=== PATIENT | male | born 1940 | race Caucasian/White ===

== ENCOUNTER → 2021-09-14 | Outpatient (CLI) | payer MEDICARE, BC ==
[2021-09-14 14:26] LABS: CREATININE, SERUM 1.07 mg/dL (0.72-1.25)
== END ==
LOC: CT 13:26
PROVIDERS: ATTEND Internal Medicine
DX: J44.1 Chronic obstructive pulmonary disease with (acute) exacerbation (principal); F17.210 Nicotine dependence, cigarettes, uncomplicated
CPT/HCPCS: 36415; 70491; 71250; 82565; 84520

== ENCOUNTER → 2021-09-19 | Outpatient (CLI) | payer MEDICARE, BC | LOC: US 12:35 | PROVIDERS: ATTEND Internal Medicine | DX: E04.1 Nontoxic single thyroid nodule (principal) | CPT/HCPCS: 76536 ==

== ENCOUNTER 2024-11-06 13:33 | Inpatient (IN) | payer MEDICARE, BC ==
[~2024-11-06] VITALS: Ht 177.8 cm; Wt 104.3 kg
[2024-11-06 13:35] VITALS: TEMP 98.4
[2024-11-06 14:23] LABS: BASOPHILS # (AUTO) 0.1 (0.0-0.1); EOSINOPHILS # (AUTO) 0.3 (0.0-0.4); EOSINOPHILS % 3.1 % (0.0-6.0); HEMATOCRIT 42.8 % (38.2-49.6); HEMOGLOBIN 14.1 g/dL (14.0-18.0); LYMPHOCYTES # (AUTO) 1.7 (1.0-3.2); LYMPHOCYTES % 16.4 % (18.0-39.1); MEAN CORPUSCULAR HEMOGLOBIN 30.2 pg (28-32); MEAN CORPUSCULAR HGB CONC 32.9 g/dL (31-35); MEAN CORPUSCULAR VOLUME 91.6 fL (81-99); MONOCYTES # (AUTO) 0.8 (0.2-0.8); MONOCYTES % 7.7 % (4.4-11.3); NEUTROPHILS # (AUTO) 7.3 (2.1-6.9); NEUTROPHILS % 71.5 % (38.7-80.0); PLATELET COUNT 198 x10e3/uL (140-360); RED BLOOD COUNT 4.67 x10e6/uL (4.3-5.7); RED CELL DISTRIBUTION WIDTH 14.6 % (11.7-14.4); WHITE BLOOD COUNT 10.17 x10e3/uL (4.8-10.8)
[2024-11-06 14:50] LABS: MAGNESIUM 1.7 MG/DL (1.3-2.1)
[2024-11-06 14:54] LABS: TROPONIN I 0.002 ng/mL (0-0.300)
[2024-11-06 14:57] LABS: ALBUMIN 3.8 g/dL (3.5-5.0); ALBUMIN/GLOBULIN RATIO 1.5 (0.8-2.0); ANION GAP 15.6 mmol/L (8-16); BILIRUBIN,TOTAL 0.9 mg/dL (0.2-1.2); CALCIUM 9.2 mg/dL (8.4-10.2); CREATININE, SERUM 1.45 mg/dL (0.72-1.25); POTASSIUM 4.6 mmol/L (3.5-5.1); TOTAL PROTEIN 6.4 g/dL (6.5-8.1)
[2024-11-06] MEDS: SODIUM CHLORIDE 0.9% 500ML 500 ML IV ONE ×2 (15:55→18:39)
[2024-11-06 17:41] LABS: CLARITY,URINE CLEAR (CLEAR); COLOR,URINE YELLOW (YELLOW); LEUKOCYTE ESTERASE ,URINE NEGATIVE (NEGATIVE); PH,URINE 5.5 (5 - 7)
[2024-11-06 17:42] LABS: BILIRUBIN,URINE NEGATIVE (NEGATIVE); GLUCOSE, URINE NEGATIVE (NEGATIVE); KETONES,URINE NEGATIVE (NEGATIVE); NITRITE,URINE NEGATIVE (NEGATIVE); PROTEIN,URINE DIPSTICK TRACE (NEGATIVE); URINE UROBILINOGEN 0.2 mg/dL (0.2 - 1)
[2024-11-06 17:59] LABS: BACTERIA,URINE RARE /HPF; RBC,URINE 0-5 /HPF (0-5); WBC,URINE (MAN) 0-5 /HPF (0-5)
[2024-11-06 18:00] LABS: MUCUS,URINE MODERATE
[2024-11-06] MEDS ORDERED: ONDANSETRON HCL INJ 2MG/ML 2ML 2 MG/ML VIAL IV PRN (18:45)
[2024-11-06 18:58] VITALS: PULSE 73; RESP 18
[2024-11-06 22:30] VITALS: BP 142/88; PULSE 71; RESP 18; TEMP 97.6; O2SAT 100
[2024-11-06] MEDS ORDERED: CETIRIZINE HCL10 M1 PO (23:58)
[2024-11-06] MEDS ORDERED: ASPIRIN81 MG PO (23:59)
[2024-11-07] VITALS: BP_SYST 134; BP_SYST 139; BP_DIAS 54; BP_DIAS 59; PULSE 62; PULSE 74; RESP 20; TEMP 97.5; TEMP 97.8; TEMP 97.9; O2SAT 100
[2024-11-07] MEDS ORDERED: ZOLPIDEM TARTRAT5 MG PO (00:02)
[2024-11-07] MEDS ORDERED: FLOMAX0.4 MG PO (00:03)
[2024-11-07] MEDS ORDERED: MELOXICAM7.5 MG PO (00:04)
[2024-11-07] MEDS ORDERED: NIFEDIPINE ER30 M1 PO (00:05)
[2024-11-07] MEDS ORDERED: ROSUVASTATIN CAL5 MG (00:07)
[2024-11-07] MEDS ORDERED: METOPROLOL SUCC25 MG PO (00:08)
[2024-11-07] MEDS ORDERED: BENICAR20 MG PO (00:10)
[2024-11-07] MEDS: SODIUM CHLORIDE 0.9% 1000ML 1,000 ML IV ONE (00:30)
[2024-11-07 08:10] LABS: BASOPHILS # (AUTO) 0.1 (0.0-0.1); BASOPHILS % 1.2 % (0.0-1.0); EOSINOPHILS # (AUTO) 0.4 (0.0-0.4); EOSINOPHILS % 4.6 % (0.0-6.0); HEMOGLOBIN 13.4 g/dL (14.0-18.0); LYMPHOCYTES # (AUTO) 1.7 (1.0-3.2); MEAN CORPUSCULAR HGB CONC 31.9 g/dL (31-35); MONOCYTES # (AUTO) 0.6 (0.2-0.8); MONOCYTES % 8.2 % (4.4-11.3); NEUTROPHILS # (AUTO) 4.9 (2.1-6.9); NEUTROPHILS % 63.6 % (38.7-80.0); PLATELET COUNT 198 x10e3/uL (140-360); RED BLOOD COUNT 4.47 x10e6/uL (4.3-5.7); RED CELL DISTRIBUTION WIDTH 14.4 % (11.7-14.4); WHITE BLOOD COUNT 7.77 x10e3/uL (4.8-10.8)
[2024-11-07 08:32] LABS: ALBUMIN 3.5 g/dL (3.5-5.0); ALBUMIN/GLOBULIN RATIO 1.5 (0.8-2.0); ANION GAP 13.4 mmol/L (8-16); BILIRUBIN,TOTAL 0.6 mg/dL (0.2-1.2); CALCIUM 8.7 mg/dL (8.4-10.2); CREATININE, SERUM 1.16 mg/dL (0.72-1.25); POTASSIUM 4.4 mmol/L (3.5-5.1); TOTAL PROTEIN 5.8 g/dL (6.5-8.1)
[2024-11-07 08:49] VITALS: BP 169/63; PULSE 66; RESP 18; TEMP 97.8; O2SAT 100
[2024-11-07] MEDS ORDERED: MAGNESIUM HYDROXIDE 30 ML UDC PO PRN (11:15)
[2024-11-07] MEDS: NIFEDIPINE CR 30 MG TAB PO SCH (12:52)
[2024-11-07 13:44] VITALS: BP 170/56; PULSE 68; RESP 20; TEMP 97.3; O2SAT 100
[2024-11-07] MEDS: SENNA-S TABLET PO SCH (17:00)
[2024-11-07 17:40] VITALS: BP 182/61; PULSE 65; RESP 20; TEMP 97.7; O2SAT 100
[2024-11-07] MEDS: HYDRALAZINE HCL 20 MG/ML VIAL IV PRN (17:45)
[2024-11-07] MEDS: ENOXAPARIN SOD INJ 40 MG/0.4 ML SYR SC SCH (17:45)
[2024-11-07] MEDS: CELECOXIB 100 MG CAP PO SCH (17:45)
[2024-11-07 20:00] VITALS: BP 158/68; PULSE 66; RESP 19; TEMP 97.3; O2SAT 100
[2024-11-07] MEDS: TAMSULOSIN HCL 0.4 MG CAP PO SCH (21:51)
[2024-11-07] MEDS: METOPROLOL SUCCINATE 25 MG TAB XL PO SCH (21:52)
[2024-11-08] VITALS (8 sets, daily range): BP systolic 117–187; BP diastolic 58–73; PULSE 61–88; RESP 17–19; TEMP 97.3–98; O2SAT 97–100
[2024-11-08] MEDS: ACETAMINOPHEN 325 MG TAB PO PRN (02:28)
[2024-11-08] MEDS: OLMESARTAN 20 MG TAB PO SCH (09:57)
[2024-11-08] MEDS: MELOXICAM 7.5 MG TAB PO SCH (09:57)
[2024-11-08] MEDS: ASPIRIN 81 MG CHEW TAB PO SCH (10:08)
[2024-11-08] MEDS: HYDROCODONE/APAP 7.5MG-325MG 1 EA TAB PO PRN (17:41)
[2024-11-09] VITALS (10 sets, daily range): BP systolic 122–174; BP diastolic 45–67; PULSE 56–65; RESP 18–19; TEMP 97.2–98.6; O2SAT 97–99
[2024-11-09] MEDS: NIFEDIPINE CR 30 MG TAB PO SCH (08:23)
[2024-11-10] VITALS (7 sets, daily range): BP systolic 119–171; BP diastolic 56–67; PULSE 55–64; RESP 16–20; TEMP 97.1–98.7; O2SAT 98–100
[2024-11-11 03:00] VITALS: BP 163/68; PULSE 57; RESP 18; TEMP 97.1; O2SAT 99
[2024-11-11 08:05] VITALS: BP 138/54; PULSE 54; RESP 19; TEMP 97.6; O2SAT 98
[2024-11-11 09:41] VITALS: BP 138/54; PULSE 54; RESP 19; TEMP 97.6; O2SAT 98
[2024-11-11 11:05] VITALS: BP 128/52; PULSE 59; RESP 18; TEMP 97.7; O2SAT 99
[2024-11-11 15:30] VITALS: BP 142/62; PULSE 54; RESP 18; TEMP 97.5; O2SAT 99
[2024-11-11 20:00] VITALS: BP 151/95; PULSE 79; RESP 20; TEMP 98.7; O2SAT 97
[2024-11-11] MEDS: METOPROLOL SUCCINATE 25 MG TAB XL PO SCH (23:11)
[2024-11-12 07:35] VITALS: BP 123/60; PULSE 60; RESP 17; TEMP 98.6; O2SAT 100
[2024-11-12 09:44] LABS: BASOPHILS # (AUTO) 0.1 (0.0-0.1); BASOPHILS % 1.5 % (0.0-1.0); EOSINOPHILS # (AUTO) 0.2 (0.0-0.4); EOSINOPHILS % 3.2 % (0.0-6.0); HEMATOCRIT 41.7 % (38.2-49.6); HEMOGLOBIN 13.5 g/dL (14.0-18.0); LYMPHOCYTES # (AUTO) 1.6 (1.0-3.2); LYMPHOCYTES % 23.8 % (18.0-39.1); MEAN CORPUSCULAR HGB CONC 32.4 g/dL (31-35); MEAN CORPUSCULAR VOLUME 92.7 fL (81-99); MONOCYTES # (AUTO) 0.4 (0.2-0.8); MONOCYTES % 6.5 % (4.4-11.3); NEUTROPHILS # (AUTO) 4.4 (2.1-6.9); NEUTROPHILS % 64.9 % (38.7-80.0); PLATELET COUNT 224 x10e3/uL (140-360); RED CELL DISTRIBUTION WIDTH 13.8 % (11.7-14.4)
[2024-11-12 10:08] LABS: ANION GAP 13.2 mmol/L (8-16); CREATININE, SERUM 1.28 mg/dL (0.72-1.25); POTASSIUM 4.2 mmol/L (3.5-5.1)
[2024-11-12 11:35] VITALS: BP 113/59; PULSE 63; RESP 18; TEMP 97.4; O2SAT 99
[2024-11-12] MEDS ORDERED: ONDANSETRON HCL 4 MG ORAL DISINTEGRATING TAB PO PRN (11:45)
[2024-11-13] MEDS ORDERED: PANTOPRAZOLE SOD 40 MG TABEC PO SCH (07:30)
== END 2024-11-12 14:05 | disposition home or self-care (01) | DRG 563 ==
LOC: ER 14:23 → ERHOLD 19:00 → MED/SURG3 22:11 → OBSVTOIN 11-07 11:13
PROVIDERS: ADMIT Internal Medicine; ATTEND Internal Medicine
PROC: 2W3RX1Z Immobilization of Left Lower Leg using Splint (ICD-10-PCS; principal; 2024-11-07)
DX: S82.432A Displaced oblique fracture of shaft of left fibula, initial encounter for closed fracture (principal); I47.29 Other ventricular tachycardia; E78.5 Hyperlipidemia, unspecified; E86.0 Dehydration; I12.9 Hypertensive chronic kidney disease with stage 1 through stage 4 chronic kidney disease, or unspecified chronic kidney disease; N18.2 Chronic kidney disease, stage 2 (mild); R53.81 Other malaise; G62.9 Polyneuropathy, unspecified; K59.00 Constipation, unspecified; M19.90 Unspecified osteoarthritis, unspecified site; I73.9 Peripheral vascular disease, unspecified; I77.9 Disorder of arteries and arterioles, unspecified; R29.6 Repeated falls; W01.0XXA Fall on same level from slipping, tripping and stumbling without subsequent striking against object, initial encounter; Y92.481 Parking lot as the place of occurrence of the external cause; Z79.82 Long term (current) use of aspirin; Z82.49 Family history of ischemic heart disease and other diseases of the circulatory system; F17.210 Nicotine dependence, cigarettes, uncomplicated
CPT/HCPCS: 36415; 70450; 71045; 71250; 72125; 74176; 80048; 80053; 81001; 83735; 83880; 84484; 85025; 87086; 93306; 99284; G0378; J0360; J1650; J2470; J7030; J7040